=== PATIENT | male | born 1955 | race Caucasian/White ===

== ENCOUNTER 2023-03-20 07:29 | Emergency (ER) | payer MEDICARE ==
[~2023-03-20] VITALS: Ht 188 cm; Wt 106.5 kg
[~2023-03-20 07:29] MED LIST: ACTOPLUS M15 MG/500 PO; ALLOPURINOL300 MG PO; BACTRIM DS1 TAB PO; GLIMEPIRIDE2 MG PO; INVOKANA100 MG PO; LORTAB 10-325 M1 TAB PO; LORTAB 5/3255 MG PO; METFORMIN500 MG PO; SILVADENE1 % EX
[2023-03-20 07:43] VITALS: BP 147/80
[2023-03-20] MEDS ORDERED: FLOXIN OTIC0.3 % AS (07:48)
[2023-03-20 08:00] VITALS: BP 134/88
== END 2023-03-20 08:09 | disposition home or self-care (01) ==
LOC: ED 07:29
DX: H60.92 Unspecified otitis externa, left ear (principal); E11.9 Type 2 diabetes mellitus without complications; I10 Essential (primary) hypertension; Z79.84 Long term (current) use of oral hypoglycemic drugs